=== PATIENT | female | born 1935 | race Caucasian/White ===

== ENCOUNTER 2018-01-04 06:00 | Day surgery (SDC) | payer OTHER ==
[~2018-01-04] VITALS: Ht 152.4 cm; Wt 62.6 kg
[~2018-01-04 06:00] MED LIST: FLONASE16 GM; NEURONTIN300 MG PO; VALSARTAN80 MG; ZANTAC150 M3; ZANTAC150 MG
== END 2018-01-04 16:40 | disposition home or self-care (01) ==
LOC: CIR.AMB 06:00 → O/R 06:00 → SURH 06:00 → CIR.AMB 11:00 → EDSTATUS 11:00 → SURH 11:00 → CIR.AMB 16:40
DX: K56.51 Intestinal adhesions [bands], with partial obstruction (principal); L98.8 Other specified disorders of the skin and subcutaneous tissue